=== PATIENT | male | born 1955 | race Caucasian/White ===

== ENCOUNTER 2023-09-02 06:29 | Day surgery (SDC) | payer OTHER ==
[~2023-09-02] VITALS: Ht 185.4 cm; Wt 93.0 kg
[2023-09-02] MEDS ORDERED: CLINDAMYCIN PHOS 900 MG/ D5W 50 ML PREMIX IV ONE (07:00)
[2023-09-02 08:10] VITALS: O2SAT 98
[2023-09-02] MEDS ORDERED: fentaNYL CITRATE/PF 100 MCG/2 ML AMP ONE (09:33)
[2023-09-02] MEDS ORDERED: MIDAZOLAM HCL 2 MG/2 ML VIAL (VERSED) ONE (09:34)
[2023-09-02] MEDS ORDERED: SEVOFLURANE 15 MIN GAS INH ONE (09:35)
[2023-09-02] MEDS ORDERED: LIDOCAINE/EPI 1% 1:100000 20 ML VIAL ONE (09:35)
[2023-09-02] MEDS ORDERED: GLYCOPYRROLATE 0.2 MG/ML VIAL ONE (09:35)
[2023-09-02] MEDS ORDERED: SUCCINYLCHOLINE CHLORIDE 20 MG/ML(QUELICIN) ONE (09:35)
[2023-09-02] MEDS ORDERED: METOCLOPRAMIDE HCL 10 MG/2 ML VIAL ONE (09:35)
[2023-09-02] MEDS ORDERED: PHENYLEPHRINE HCL 10 MG/ML VIAL (NEOSYNEPHRINE) ONE (09:35)
[2023-09-02] MEDS ORDERED: PROPOFOL 200MG/ 20ML VIAL (DIPRIVAN) IV ONE (09:35)
[2023-09-02] MEDS ORDERED: ePHEDrine sulfate 50 MG/ML VIAL ONE (09:35)
[2023-09-02] MEDS ORDERED: NS IRRIG SOLN 1000 ML IR ONE (09:35)
[2023-09-02] MEDS ORDERED: DEXAMETHASONE SOD PHOSPHATE 4 MG/ML VIAL ONE (09:35)
[2023-09-02] MEDS ORDERED: ROCURONIUM BROMIDE 10 MG/ML (ZEMURON) ONE (09:35)
[2023-09-02] MEDS ORDERED: LR 1,000 ML IV.SOLN IV ONE (09:35)
[2023-09-02] MEDS ORDERED: NEOSTIGMINE METHYLSULFATE 1 MG/ML, 10 ML VIAL ONE (09:35)
[2023-09-02] MEDS ORDERED: WATER FOR IRRIGATION,STERILE 1,000 ML IRRIG.SOLN IR ONE (09:35)
[2023-09-02] MEDS ORDERED: LABETALOL 100 MG/ 20ML VIAL ONE (09:35)
[2023-09-02] MEDS ORDERED: MEPERIDINE HCL/PF 25 MG/ML DISP.SYRIN IVP PRN (11:00)
[2023-09-02] MEDS ORDERED: LABETALOL 100 MG/ 20ML VIAL IVP PRN (11:00)
[2023-09-02] MEDS ORDERED: LR 500 ML IV SCH (11:00)
[2023-09-02] MEDS ORDERED: ONDANSETRON HCL 4 MG/2 ML VIAL IVP PRN ×2 (11:00→13:30)
[2023-09-02] MEDS ORDERED: HYDROmorphone 1 MG/ML INJ. CARTRIDGE IVP PRN ×2 (11:00)
[2023-09-02] MEDS ORDERED: THROMBIN (BOVINE) 5000 UNITS/ VIAL TP ONE (12:17)
[2023-09-02] MEDS ORDERED: ONDANSETRON 4 MG ODT TAB PO PRN (13:30)
[2023-09-02] MEDS ORDERED: HYDROcodone/ACETAMIN 5-325 MG TAB (NORCO/ VICODIN) PO PRN (13:30)
[2023-09-02] MEDS ORDERED: ACETAMINOPHEN 500 MG TABLET PO PRN (13:30)
[2023-09-02 15:49] VITALS: BP_SYST 126; PULSE 92; RESP 18
== END 2023-09-02 15:37 | disposition home or self-care (01) ==
LOC: SDS 06:29 → SMU 06:31 → SDS 15:37
PROVIDERS: ATTEND Otolaryngology
DX: J32.4 Chronic pansinusitis (principal); J34.2 Deviated nasal septum; J32.0 Chronic maxillary sinusitis; J33.0 Polyp of nasal cavity; Z79.899 Other long term (current) drug therapy
CPT/HCPCS: 87081; 31296; 31267; 31259; 30520; 88305; 88311; J2710; J3490 ×3; J1100; J2765; J3465; J2704; J0330; J3010; J7120; C1726; J2370